=== PATIENT | female | born 1985 | race Two or more races ===

== ENCOUNTER 2025-02-26 14:10 | Inpatient (IN) | payer OTHER ==
[~2025-02-26] VITALS: Ht 157.5 cm; Wt 54.0 kg
--- NOTE | 2025-02-26 14:19 | ED.PDOC ---
History of Present Illness HPI Comments This is a 40 year old female OSCARA presenting to the ED with chief complaint of ETOH withdrawal and depression. EMS reports that the patient is coming from her friend's home where she has been experiencing nausea with associated tremors and weakness today. EMS relays that the patient's last drink of alcohol was 6 hours ago. Patient admits to having depression after delivering her child 4 months ago, but didn't start binge drinking until her birthday on [birth year]. Patient states that her baby is currently where she lives in [facility]. Patient denies any SI, HI, vomiting, chest pain, abdominal pain, or syncope. Patient is . Time Seen by MD: 14:15 Reviewed Notes: Nurses Notes, Pediatric Speech Language Pathologist Notes, Medications, Allergies Information Source: Patient, Emergency Med Personnel Mode of Arrival: EMS Severity: Moderate Timing: Hours Duration: Since onset Prehospital treatment: None Past Medical History PAST MEDICAL HISTORY: Denies Surgical History: Denies all surgeries MANAGER OF CREATIVE SERVICES History: No Pertinent MANAGER OF CREATIVE SERVICES History Family History Family History: Reviewed,noncontributory to illness Social History Smoker: Non-Smoker Alcohol: Heavy Drugs: Denies Drug Use Lives In: Home Constitutional: reports: weakness; denies: chills, diaphoresis, fatigue, fever, malaise, sweats, others EENTM: denies: blurred vision, double vision, ear bleeding, ear discharge, ear drainage, ear pain, ear ringing, eye pain, eye redness, hearing loss, mouth pain, mouth swelling, nasal discharge, nose bleeding, nose congestion, nose pain, photophobia, tearing, throat pain, throat swelling, voice changes, others Respiratory: denies: cough, hemoptysis, orthopnea, SOB at rest, shortness of breath, SOB with excertion, stridor, wheezing, others Cardiovascular: denies: chest pain, dizzy spells, diaphoresis, Dyspnea on exertion, edema, irregular heart beat, left arm pain, lightheadedness, pal pitations, PND, syncope, others Gastrointestinal: reports: nausea; denies: abdomen distended, abdominal pain, blood streaked bowels, constipated, diarrhea, dysphagia, difficulty swallowing, hematemesis, melena, poor appetite, poor fluid intake, rectal bleeding, rectal pain, vomiting, others Genitourinary: denies: abnormal vagina bleeding, burning, dyspareunia, dysuria, flank pain, frequency, hematuria, incontinence, pain, , vagina disc harge, urgency, others Neurological: reports: tremors; denies: dizziness, fainting, headache, left sided numbness, left sided weakness, numbness, paresthesia, pre-existing deficit, right sided numbness, right sided weakness, seizure, speech problems, tingling, weakness, others Musculoskeletal: denies: back pain, gout, joint pain, joint swelling, muscle pain, muscle stiffness, neck pain, others Integumetry: denies: bruises, change in color, change in hair/nails, dryness, laceration, lesions, lumps, rash, wounds, others Allergic/Immunocompromised: denies: Difficulty Healing, Frequent Infections, Hives, Itching, others Hematologic/Lymphatic: denies: anemia, blood clots, easy bleeding, easy bruising, swollen glands, others Endocrine: denies: excessive hunger, excessive sweating, excessive thirst, excessive urination, flushing, intolerance to cold, intolerance to heat, unexplained weight gain, unexplained weight loss, others Psychiatric: reports: depression; denies: anxiety, bipolar disorder, hopeless, panic disorder, schizophrenia, sleepless, suicidal, others All Other Systems: Reviewed and Negative Physical Exam General Appearance: Moderate Distress, Normal HEENT: Normal ENT Inspection, Pharynx Normal, TMs Normal Neck: Full Range of Motion, Non-Tender, Normal, Normal Inspection Respiratory: Chest Non-Tender, Lungs Clear, No Accessory Muscle Use, No Respiratory Distress, Normal Breath Sounds Cardiovascular: No Edema, No JVD, No Murmur, No Gallop, Normal Peripheral Pulses, Regular Rate/Rhythm Breast Exam: Deferred Gastrointestinal: No Organomegaly, Non Tender, No Pulsatile Mass, Normal Bowel Sounds, Soft Genitalia: Deferred Pelvic: Deferred Rectal: Deferred Extremities: No calf tenderness, Normal capillary refill, Normal inspection, Normal range of motion, Non-tender, No pedal edema Musculoskeletal : Apperance: Normal Neurologic: Alert, manager terminal II-XII nml as Tested, No Motor Deficits, Normal Affect, Normal Mood, No Sensory Deficits Cerebellar Function: Normal Reflexes: Normal Skin: Dry, Normal Color, Warm Peripheral Pulses: 3+ Radial (R), 3+ Radial (L) Lymphatic: No Adenopathy Was a procedure done? Was a procedure done?: No Differential Dx Considerations may include: ETOH intoxication X-Ray, Labs, Meds, VS Lab Test 02/26/25 14:22 Range/Units White Blood Count Pending Red Blood Count Pending Hemoglobin Pending Hematocrit Pending Mean Corpuscular Volume Pending Mean Corpuscular Hemoglobin Pending Mean Corpuscular Hemoglobin Concent Pending Red Cell Distribution Width Pending Platelet Count Pending Mean Platelet Volume Pending Neutrophils (%) (Auto) Pending Lymphocytes (%) (Auto) Pending Monocytes (%) (Auto) Pending Basophils (%) (Auto) Pending Neutrophils # (Auto) Pending Lymphocytes # (Auto) Pending Monocytes # (Auto) Pending Sodium Level Pending Potassium Level Pending Chloride Level Pending Carbon Dioxide Level Pending Anion Gap Pending Blood Urea Nitrogen Pending Creatinine Pending Glomerular Filtration Rate Calc Pending BUN/Creatinine Ratio Pending Serum Glucose Pending Calcium Level Pending Patient alert. She has been drinking for many days. Vitals stable. Answering questions. Recently had given . History of alcohol problem. Establish intravenous access. Was given fluids. Was given thiamine. Counseled patient on effects of drinking for 15 minutes. Explained to the patient. Continue monitoring. Time of 1ST Reevaluation: 15:13 Reevaluation 1ST: Unchanged Patient Education/Counseling: Diagnosis, Treatment Family Education/Counseling: No Family Present SEPSIS Sepsis Screen Physician Orders Complete Blood Count (02/26/25 14:13) Urinalysis (02/26/25 14:13) Basic Metabolic Panel (02/26/25 14:13) Sodium Chloride 0.9% (02/26/25 14:15) Sodium Chloride 0.9% (02/26/25 14:15) Laboratory Tests Test 02/26/25 14:22 White Blood Count Pending Departure 1 Departure Time of Disposition: 14:30 Impression: Primary Impression: Alcohol intoxication Qualified Codes: F10.920 - Alcohol use, unspecified with intoxication, uncomplicated Disposition: 09 ADMITTED INPATIENT Admit to: Med Surg Condition: Guarded Critical Care Note Critical Care Time?: No Stability Stability form required: No Heart Score Heart Score: Heart Score Response (Comments) Value History N/A 0 EKG N/A 0 Age N/A 0 Risk Factors N/A 0 Troponin N/A 0 Total 0 I personally scribed for FELTON MAO MD ([email or web address]) on 02/26/25 at 14:19. Electronically submitted by Dionisio Moya ([email or web address]). FELTON MAO MD Feb 26, 2025 14:19
[2025-02-26 14:31] LABS: Hematocrit 46.2 % (36.0-46.0); Hemoglobin 15.8 g/dL (12.2-16.2); Mean Corpuscular Hemoglobin 30.8 pg (28.0-32.0); Mean Corpuscular Volume 89.8 fL (80.0-100.0); Nucleated Red Blood Cells % 0.1 %
[2025-02-26] MEDS: THIAMINE 100mg/ml INJ (200mg/2ml VIAL) IV ONE (14:38)
[2025-02-26 14:41] LABS: Anion Gap 15 (5-15); Carbon Dioxide 25 mmol/L (20-31); Chloride 102 mmol/L (98-107); Potassium 4.2 mmol/L (3.5-5.1); Sodium 142 mmol/L (136-145)
[2025-02-26 14:42] LABS: Calcium 8.8 mg/dL (8.7-10.4)
[2025-02-26] MEDS: SODIUM CHLORIDE 0.9% 1,000 ML IV ONE ×2 (14:45→16:40)
[2025-02-26 14:47] LABS: BUN/Creatinine Ratio 11.8 (10.0-20.0)
[2025-02-26 14:48] LABS: Blood Urea Nitrogen 8 mg/dL (9-23); Glucose 116 mg/dL (74-106)
[2025-02-26] MEDS: LORazepam 2MG/ML-1ML VIAL IV ONE (15:05)
[2025-02-26 15:36] VITALS: PULSE 102; RESP 19; O2SAT 93
[2025-02-26] MEDS ORDERED: DOCUSATE SOD 100 MG CAP PO PRN (18:30)
--- NOTE | 2025-02-26 18:33 | DVHHP2 ---
Admitting Diagnosis: Alcohol intoxication History of Present Illness This is a 40 year old female OSCARA presenting to the ED with chief complaint of ETOH withdrawal and depression. EMS reports that the patient is coming from her friend's home where she has been experiencing nausea with associated tremors and weakness today. EMS relays that the patient's last drink of alcohol was 6 hours ago. Patient admits to having depression after delivering her child 4 months ago , but didn't start binge drinking until her birthday on [birth year]. Patient states that her baby is currently where she lives in [facility]. Patient denies any SI, HI, vomiting, chest pain, abdominal pain, or syncope. Patient is . PAST MEDICAL HISTORY: Denies Surgical History: Denies all surgeries COST ENGINEER History: No Pertinent COST ENGINEER History Family History Family History: Reviewed,noncontributory to illness Social History Smoker: Non-Smoker Alcohol: Heavy Drugs: Denies Drug Use Lives In: Home Allergies: Coded Allergies: NO KNOWN ALLERGIES (Unverified , 02/26/25) Vital Signs Vital Signs Date Time Temp Pulse Resp B/P (MAP) Pulse Ox O2 Delivery O2 Flow Rate FiO2 02/26/25 15:41 102 19 132/91 (105) 93 02/26/25 15:36 Room Air* 0 21 02/26/25 14:10 98.9 98.9 Physical Exam Generally-40 years old woman, well nourished well developed. Mild distress HEENT-atraumatic normocephalic Heart-sinus tachycardic Lungs-Clear to auscultate bilaterally Abdomen soft nontender nondistended Musculoskeletal-no edema cyanosis Neuro-AO3 no focal deficits SEPSIS Sepsis Screen Date sepsis recognized/suspect: Feb 26, 2025 Time Sepsis recognized/suspect: 1542 Recent Procedure: No On Antibiotic Therapy: No Respiratory Rate >20: No Heart Rate >90: Yes (102) Temp<36 C (96.8 F) or >38.3 C: No SBP <90 or MAP <65 mmHG: No New Acute Mental Status Change: No Is the patient on CPAP, BIPAP,: No Physician Orders Urinalysis (02/26/25 14:13) Sodium Chloride 0.9% (02/26/25 14:15) Drug Screen (02/26/25 14:30) Lactated Ringer's (02/26/25 18:30) Admit (02/26/25:) Code Status (02/26/25:) Vital Signs .PER UNIT PROTOCOL (02/26/25:25) Review Orders With Adm. (02/26/25 18:25) Encourage Activity As Tolerate (02/26/25 18:25) Regular Diet (02/26/25 Dinner) Sodium Chloride Lock (Saline Lock Ns) (02/26/25 22:00) Docusate Sodium Capsule (Colace Capsule) (02/26/25 18:30) Acetaminophen Tablet (Tylenol Tablet) (02/26/25 18:30) Notify Md Of Changes From Base (02/26/25:) Advance Directive (02/26/25:) Patient Condition (02/26/25:) Allergies (02/26/25:) Hydrocodone-Acet 5/325mg Tab ([place] 5/32 (02/26/25 18:30) Ondansetron Hcl (Zofran) (02/26/25 18:30) Lovenox 40mg (02/27/25 10:00) Thiamine 100mg Po Daily (02/27/25 10:00) Folic Acid 1mg Po Daily (02/27/25 10:00) Mvi Tablet Po Daily (02/27/25 10:00) Ativan 1mg Iv Q2hr Prn (02/26/25 18:30) Etoh Withdrawal Assessment (02/26/25 18:28) Etoh Withdrawal Assessment NOW (02/26/25 18:28) Vital Signs Date Time Temp Pulse Resp B/P (MAP) Pulse Ox O2 Delivery O2 Flow Rate FiO2 02/26/25 15:41 102 19 132/91 (105) 93 02/26/25 15:36 102 19 93 Room Air* 0 21 02/26/25 14:10 98.9 111 16 127/87 (100) 99 98.9 Laboratory Tests Test 02/26/25 14:22 White Blood Count 7.4 10^3/uL (4.4-10.8) Medications Medications Dose Ordered Sig/Clara Route Start Time Stop Time Status Last Admin Dose Admin Lorazepam 1 mg ONCE ONCE IV 02/26/25 14:30 02/26/25 14:31 DC 02/26/25 15:05 Sodium Chloride 1,000 ml @ 150 mls/hr Q6H40M ONCE IV 02/26/25 14:15 02/26/25 20:54 02/26/25 16:40 Sodium Chloride 1,000 ml @ 1,000 mls/hr Q1H ONCE IV 02/26/25 14:15 02/26/25 15:14 DC 02/26/25 14:45 Thiamine HCl 100 mg ONCE ONCE IV 02/26/25 14:15 02/26/25 14:16 DC 02/26/25 14:38 Results Labs Test 02/26/25 14:22 Range/Units White Blood Count 7.4 4.4-10.8 10^3/uL Red Blood Count 5.14 4.0-5.20 10^6/uL Hemoglobin 15.8 12.2-16.2 g/dL Hematocrit 46.2 H 36.0-46.0 % Mean Corpuscular Volume 89.8 80.0-100.0 fL Mean Corpuscular Hemoglobin 30.8 28.0-32.0 pg Mean Corpuscular Hemoglobin Concent 34.3 32.0-36.0 g/dL Red Cell Distribution Width 13.5 11.8-14.3 % Platelet Count 196 140-450 10^3/uL Mean Platelet Volume 7.5 6.9-10.8 fL Neutrophils (%) (Auto) 61.0 37.0-80.0 % Lymphocytes (%) (Auto) 34.6 10.0-50.0 % Monocytes (%) (Auto) 3.6 0.0-12.0 % Eosinophils (%) (Auto) 0.1 0.0-7.0 % Basophils (%) (Auto) 0.7 0.0-2.0 % Neutrophils # (Auto) 4.5 1.6-8.6 10 ^3/uL Lymphocytes # (Auto) 2.6 0.4-5.4 10 ^3/uL Monocytes # (Auto) 0.3 0-1.3 10 ^3/uL Eosinophils # (Auto) 0 0-0.8 10 ^3/uL Basophils # (Auto) 0.1 0-0.2 10 ^3/uL Nucleated Red Blood Cells 0.1 % Sodium Level 142 136-145 mmol/L Potassium Level 4.2 3.5-5.1 mmol/L Chloride Level 102 98-107 mmol/L Carbon Dioxide Level 25 20-31 mmol/L Anion Gap 15 5-15 Blood Urea Nitrogen 8 L 9-23 mg/dL Creatinine 0.68 0.550-1.02 mg/dL Glomerular Filtration Rate Calc 114 >90 mL/min BUN/Creatinine Ratio 11.8 10.0-20.0 Serum Glucose 116 H 74-106 mg/dL Calcium Level 8.8 8.7-10.4 mg/dL Plasma/Serum Blood Alcohol 351.5 H <10 mg/dL Primary Diagnosis Alcoholic intoxication impending withdrawal Plan ETOH level elevated Start IV fluids at 150 cc an hour Thiamine, folate Social work consult Daily CIWA score Ativan p.r.n. per symptoms Full code Regular diet Lovenox for DVT prophylaxis PPI for GI prophylaxis Plan discussed with: Patient Problems List: (1) Alcohol intoxication Status: Acute Date of Service: Feb 26, 2025 Billing Provider: CANDELARIO EMERY MD Common Visit Codes: [id number] INP/OBS CARE (MOD) CANDELARIO EMERY MD Feb 26, 2025 18:33
[2025-02-26 19:47] VITALS: PULSE 106; RESP 18; O2SAT 97
[2025-02-26] MEDS: LORazepam 2MG/ML-1ML VIAL IV PRN (20:07)
[2025-02-26 22:30] VITALS: BP 111/77; PULSE 59; RESP 16; TEMP 97.9; O2SAT 98
[2025-02-26] MEDS: LACTATED RINGER'S 1,000 ML IV ONE (22:37)
[2025-02-26] MEDS: SODIUM CHLOR 0.9% PF (SALINE LOCK) 10ML VIAL/SYR IV SCH (22:37)
[2025-02-26 22:40] VITALS: BP 111/77; PULSE 88; PULSE 89; RESP 16; RESP 17; TEMP 97.9; O2SAT 98
[2025-02-26 23:33] LABS: Urine Protein, UAD 1+ (Negative)
[2025-02-27 00:04] LABS: Amphetamine Screen, Urine Neg (NEGATIVE); Barbiturate Scree,Urine Neg (NEGATIVE); Benzodiazephine Screen, Urine Neg (NEGATIVE); Cannabinoid Screen, Urine Neg (NEGATIVE); Cocaine Screen, Urine Neg (NEGATIVE); Opiate Scree,Urine Neg (NEGATIVE); Phencyclidine Screen, Urine Neg (NEGATIVE)
[2025-02-27 01:00] VITALS: BP 114/83; PULSE 101; RESP 16; TEMP 97.6; O2SAT 100
[2025-02-27 05:00] VITALS: BP 127/83; PULSE 98; RESP 18; TEMP 98.3; O2SAT 75
[2025-02-27 06:23] LABS: Hematocrit 36.9 % (36.0-46.0); Hemoglobin 12.6 g/dL (12.2-16.2); Mean Corpuscular Hemoglobin 30.4 pg (28.0-32.0); Mean Corpuscular Volume 89.3 fL (80.0-100.0); Nucleated Red Blood Cells % 0.1 %
[2025-02-27 06:42] LABS: Alanine Aminotransferase 24 U/L (7-40); Alkaline Phosphatase 76 U/L (46-116); Anion Gap 11 (5-15); BUN/Creatinine Ratio 14.5 (10.0-20.0); Carbon Dioxide 25 mmol/L (20-31); Chloride 104 mmol/L (98-107); Glucose 78 mg/dL (74-106); Magnesium 1.7 mg/dL (1.6-2.6); Potassium 3.8 mmol/L (3.5-5.1); Sodium 140 mmol/L (136-145); Total Protein 6.2 g/dL (5.7-8.2)
[2025-02-27 06:43] LABS: Albumin 3.8 g/dL (3.2-4.8); Bilirubin, Total 1.1 mg/dL (0.2-1.0)
[2025-02-27 06:46] LABS: Blood Urea Nitrogen 8 mg/dL (9-23); Calcium 8.3 mg/dL (8.7-10.4)
[2025-02-27 08:43] VITALS: BP 128/86; PULSE 87; RESP 18; TEMP 98.2; O2SAT 100
[2025-02-27] MEDS: FOLIC ACID 1 MG TAB PO SCH (08:45)
[2025-02-27] MEDS: MULTIPLE VITAMIN TAB PO SCH (08:45)
[2025-02-27] MEDS: THIAMINE HCL 100 MG TAB PO SCH (08:45)
[2025-02-27] MEDS: ENOXAPARIN SOD 40 MG/0.4 ML SYRINGE SC SCH (08:46)
[2025-02-27 13:00] VITALS: BP 136/101; PULSE 84; RESP 17; TEMP 98.2; O2SAT 100
[2025-02-27] MEDS: ONDANSETRON HCL 4 MG/2 ML VIAL IV PRN (14:22)
[2025-02-27 17:00] VITALS: BP 130/90; PULSE 77; RESP 16; TEMP 97.3; O2SAT 99
[2025-02-27 21:00] VITALS: BP 122/86; PULSE 74; RESP 14; TEMP 97.7; O2SAT 99
[2025-02-27] MEDS: ACETAMINOPHEN 325 MG TAB PO PRN (22:13)
--- NOTE | 2025-02-27 23:45 | DVHPN2 ---
Subjective The patient seen and examined at bedside. Very drowsy and confuse. Reviewed: Care Plan, H&P, Labs, Medications, Previous Orders, Radiology Changes from previous H/P or p: No Changes Objective Vitals Vital Signs Date Time Temp Pulse Resp B/P (MAP) Pulse Ox O2 Delivery O2 Flow Rate FiO2 02/27/25 21:00 97.7 74 14 122/86 (98) 99 97.7 02/27/25 08:00 Nasal Cannula* 1 24 Intake/Output Intake and Output 02/27/25 07:00 Intake Total 200 ml Balance 200 ml Intake Oral 200 ml General Appearance: Alert HEENT: Atraumatic, PERRLA, EOMI, Mucous membr. moist/pink Neck: Supple Lungs: Clear to auscultation Cardiovascular: Regular rate, Normal S1, Normal S2, No murmurs, Gallops, Rubs Abdomen: Normal bowel sounds, Soft, No tenderness Neuro: Cranial nerves 3-12 NL Psych/Mental Status: Mental status NL Medications Current Medications Medications Dose Ordered Sig/Clara Route Start Time Stop Time Status Last Admin Dose Admin Sodium Chloride 10 ml Q8HR IV 02/26/25 22:00 02/27/25 22:13 10 ML Docusate Sodium 100 mg BIDPRN PRN PO 02/26/25 18:30 Acetaminophen 650 mg Q6HP PRN PO 02/26/25 18:30 02/27/25 22:13 650 MG Acetaminophen/ Hydrocodone Bitart 1 tab Q4HP PRN PO 02/26/25 18:30 Ondansetron HCl 4 mg Q4HP PRN IV 02/26/25 18:30 02/27/25 14:22 4 MG Enoxaparin Sodium 40 mg DAILY SC 02/27/25 10:00 02/27/25 08:46 40 MG Thiamine HCl 100 mg DAILY PO 02/27/25 10:00 02/27/25 08:45 100 MG Folic Acid 1 mg DAILY PO 02/27/25 10:00 02/27/25 08:45 1 MG Multivitamins 1 tab DAILY PO 02/27/25 10:00 02/27/25 08:45 1 TAB Lorazepam 1 mg Q2HPRN PRN IV 02/26/25 18:30 02/27/25 14:22 1 MG Laboratory Results Laboratory Tests 02/27/25 05:24 Chemistry Test 02/27/25 05:24 Albumin 3.8 g/dL (3.2-4.8) Calcium Level 8.3 mg/dL (8.7-10.4) L Magnesium Level 1.7 mg/dL (1.6-2.6) Total Protein 6.2 g/dL (5.7-8.2) LFT Test 02/27/25 05:24 Alanine Aminotransferase (ALT) 24 U/L (7-40) Alkaline Phosphatase 76 U/L (46-116) Aspartate Amino Transferase (AST) 33 U/L (13-40) Total Bilirubin 1.1 mg/dL (0.2-1.0) H Urinalysis Test 02/26/25 23:21 Urine Color Light-yellow (Yellow) Urine Clarity Turbid (Clear) H Urine pH 5.5 (5.0-9.0) Urine Specific [place] 1.015 (1.001-1.035) Urine Protein 1+ (Negative) H Urine Ketones Trace (Negative) Urine Blood Negative /uL (Negative) Urine Nitrite Negative (Negative) Urine Bilirubin Negative (Negative) Urine Urobilinogen Normal mg/dL (Negative) Urine Leukocyte Esterase Negative /uL (Negative) Urine RBC <1 /hpf (0 - 4) Urine Microscopic WBC 10 /HPF (0-5) H Urine Squamous Epithelial Cells Few /hpf (<5) Urine Bacteria None seen /hpf (None Seen) Urine Mucus Few (None Seen) Urine Glucose Normal mg/dL (Normal) Assessment/Plan Assessment/Plan Alcoholic intoxication impending withdrawal Toxic encephalopathy. Plan: Continue current management. Continue IVF: NS 150ml/h Continue Librium and Ativan Will continue to monitor withdrawal. This medical document was created using an electronic medical record system with [employer] direct computerized dictation system. Although this document has been carefully reviewed, there may still be some phonetic and typographical errors. These areas are purely typographical due to imperfections of the software programs, and do not reflect any compromise in the patient's medical care. Plan discussed with: Patient Date of Service: Feb 27, 2025 Billing Provider: OLIVIA THOMPSON MD Common Visit Codes: [id number] INP/OBS CARE(HIGH) OLIVIA THOMPSON MD Feb 27, 2025 23:45
[2025-02-28 01:00] VITALS: BP 118/86; PULSE 83; RESP 14; TEMP 97.6; O2SAT 99
[2025-02-28 05:00] VITALS: BP 126/93; PULSE 72; RESP 14; TEMP 97.9; O2SAT 99
[2025-02-28 07:21] LABS: Hematocrit 42.6 % (36.0-46.0); Hemoglobin 14.8 g/dL (12.2-16.2); Mean Corpuscular Hemoglobin 31.2 pg (28.0-32.0); Mean Corpuscular Volume 89.7 fL (80.0-100.0); Nucleated Red Blood Cells % 0.2 %
[2025-02-28 07:30] LABS: Alanine Aminotransferase 27 U/L (7-40); Alkaline Phosphatase 94 U/L (46-116); Anion Gap 18 (5-15); Calcium 9.3 mg/dL (8.7-10.4); Chloride 99 mmol/L (98-107); Magnesium 1.8 mg/dL (1.6-2.6); Potassium 4.2 mmol/L (3.5-5.1); Total Protein 7.5 g/dL (5.7-8.2)
[2025-02-28 07:31] LABS: Albumin 4.6 g/dL (3.2-4.8)
[2025-02-28 07:32] LABS: BUN/Creatinine Ratio 8.6 (10.0-20.0); Bilirubin, Total 1.2 mg/dL (0.2-1.0); Blood Urea Nitrogen < 5 mg/dL (9-23); Carbon Dioxide 16 mmol/L (20-31); Glucose 61 mg/dL (74-106); Sodium 133 mmol/L (136-145)
[2025-02-28 08:59] VITALS: BP 122/91; PULSE 96; RESP 18; TEMP 98.4; O2SAT 99
--- NOTE | 2025-02-28 11:34 | DVHPN2 ---
Subjective The patient seen and examined at bedside. Very drowsy and confuse. Reviewed: Care Plan, H&P, Labs, Medications, Previous Orders, Radiology Changes from previous H/P or p: No Changes Objective Vitals Vital Signs Date Time Temp Pulse Resp B/P (MAP) Pulse Ox O2 Delivery O2 Flow Rate FiO2 02/28/25 08:59 98.4 96 18 122/91 (101) 99 98.4 02/28/25 08:00 Nasal Cannula* 1 24 Intake/Output Intake and Output 02/28/25 07:00 Intake Total 400 ml Balance 400 ml Intake Oral 400 ml # Voids 2 General Appearance: Alert HEENT: Atraumatic, PERRLA, EOMI, Mucous membr. moist/pink Neck: Supple Lungs: Clear to auscultation Cardiovascular: Regular rate, Normal S1, Normal S2, No murmurs, Gallops, Rubs Abdomen: Normal bowel sounds, Soft, No tenderness Neuro: Cranial nerves 3-12 NL Psych/Mental Status: Mental status NL Medications Current Medications Medications Dose Ordered Sig/Clara Route Start Time Stop Time Status Last Admin Dose Admin Sodium Chloride 10 ml Q8HR IV 02/26/25 22:00 02/28/25 05:49 10 ML Docusate Sodium 100 mg BIDPRN PRN PO 02/26/25 18:30 Acetaminophen 650 mg Q6HP PRN PO 02/26/25 18:30 02/28/25 04:22 650 MG Acetaminophen/ Hydrocodone Bitart 1 tab Q4HP PRN PO 02/26/25 18:30 Ondansetron HCl 4 mg Q4HP PRN IV 02/26/25 18:30 02/28/25 08:31 4 MG Enoxaparin Sodium 40 mg DAILY SC 02/27/25 10:00 02/28/25 08:31 40 MG Thiamine HCl 100 mg DAILY PO 02/27/25 10:00 02/28/25 08:30 100 MG Folic Acid 1 mg DAILY PO 02/27/25 10:00 02/28/25 08:30 1 MG Multivitamins 1 tab DAILY PO 02/27/25 10:00 02/28/25 08:30 1 TAB Lorazepam 1 mg Q2HPRN PRN IV 02/26/25 18:30 02/28/25 11:15 1 MG Laboratory Results Laboratory Tests 02/28/25 06:15 Chemistry Test 02/28/25 06:15 Albumin 4.6 g/dL (3.2-4.8) Calcium Level 9.3 mg/dL (8.7-10.4) Magnesium Level 1.8 mg/dL (1.6-2.6) Total Protein 7.5 g/dL (5.7-8.2) LFT Test 02/28/25 06:15 Alanine Aminotransferase (ALT) 27 U/L (7-40) Alkaline Phosphatase 94 U/L (46-116) Aspartate Amino Transferase (AST) 41 U/L (13-40) H Total Bilirubin 1.2 mg/dL (0.2-1.0) H Urinalysis Test 02/26/25 23:21 Urine Color Light-yellow (Yellow) Urine Clarity Turbid (Clear) H Urine pH 5.5 (5.0-9.0) Urine Specific [place] 1.015 (1.001-1.035) Urine Protein 1+ (Negative) H Urine Ketones Trace (Negative) Urine Blood Negative /uL (Negative) Urine Nitrite Negative (Negative) Urine Bilirubin Negative (Negative) Urine Urobilinogen Normal mg/dL (Negative) Urine Leukocyte Esterase Negative /uL (Negative) Urine RBC <1 /hpf (0 - 4) Urine Microscopic WBC 10 /HPF (0-5) H Urine Squamous Epithelial Cells Few /hpf (<5) Urine Bacteria None seen /hpf (None Seen) Urine Mucus Few (None Seen) Urine Glucose Normal mg/dL (Normal) Labs and/or images reviewed: Labs reviewed by me Assessment/Plan Assessment/Plan Alcoholic intoxication impending withdrawal Toxic encephalopathy. Plan: Continue current management. Continue IVF: Will start B[place]ana bag which including Vit B1, folic acid and MVI at 125ml/hour Continue Librium and Ativan Will continue to monitor withdrawal. This medical document was created using an electronic medical record system with [employer] direct computerized dictation system. Although this document has been carefully reviewed, there may still be some phonetic and typographical errors. These areas are purely typographical due to imperfections of the software programs, and do not reflect any compromise in the patient's medical care. Plan discussed with: Patient, Other (RN) Date of Service: Feb 28, 2025 Billing Provider: OLIVIA THOMPSON MD Common Visit Codes: [id number] INP/OBS CARE(HIGH) THOMPSON,OLIVIA O MD Feb 28, 2025 11:34
[2025-02-28 13:00] VITALS: BP 140/108; PULSE 116; RESP 20; TEMP 98.1; O2SAT 98
[2025-02-28] MEDS: HYDROcodone-ACET 5/325MG TAB PO PRN (13:57)
[2025-02-28 16:51] VITALS: BP 118/83; PULSE 103; RESP 20; TEMP 98.4; O2SAT 99
[2025-02-28] MEDS: FOLIC ACID 1 MG, MAGNESIUM SULF SDV 50% 8 MEQ, MULTIPLE VITAMIN 10 ML, THIAMINE INJ 100... INJ ONE (17:54)
[2025-02-28 21:00] VITALS: BP 119/92; PULSE 96; RESP 22; TEMP 98.1; O2SAT 100
[2025-03-01 05:00] VITALS: BP 119/86; PULSE 86; RESP 20; TEMP 98; O2SAT 100
[2025-03-01 06:54] LABS: Hematocrit 39.4 % (36.0-46.0); Hemoglobin 13.9 g/dL (12.2-16.2); Mean Corpuscular Hemoglobin 31.5 pg (28.0-32.0); Mean Corpuscular Volume 89.1 fL (80.0-100.0); Nucleated Red Blood Cells % 0.1 %
[2025-03-01 06:55] LABS: Alanine Aminotransferase 21 U/L (7-40); Alkaline Phosphatase 79 U/L (46-116); Anion Gap 13 (5-15); Calcium 9.0 mg/dL (8.7-10.4); Chloride 104 mmol/L (98-107); Glucose 91 mg/dL (74-106); Magnesium 2.0 mg/dL (1.6-2.6); Potassium 3.9 mmol/L (3.5-5.1); Sodium 136 mmol/L (136-145); Total Protein 7.0 g/dL (5.7-8.2)
[2025-03-01 06:56] LABS: Albumin 4.2 g/dL (3.2-4.8); Bilirubin, Total 0.9 mg/dL (0.2-1.0)
[2025-03-01 07:02] LABS: BUN/Creatinine Ratio 8.8 (10.0-20.0); Blood Urea Nitrogen < 5 mg/dL (9-23); Carbon Dioxide 19 mmol/L (20-31)
[2025-03-01 08:00] VITALS: PULSE 82; RESP 17
--- NOTE | 2025-03-01 12:40 | DVHDS2 ---
Discharge Summary Date of Admission Feb 26, 2025 at 18:25 Date of Discharge: Mar 01, 2025 Admitting Diagnosis Alcoholic intoxication impending withdrawal Toxic encephalopathy. Labs/Diagnostic Data: Laboratory Results Test 03/01/25 06:08 02/26/25 23:21 02/26/25 14:22 White Blood Count 3.7 10^3/uL (4.4-10.8) Red Blood Count 4.42 10^6/uL (4.0-5.20) Hemoglobin 13.9 g/dL (12.2-16.2) Hematocrit 39.4 % (36.0-46.0) Mean Corpuscular Volume 89.1 fL (80.0-100.0) Mean Corpuscular Hemoglobin 31.5 pg (28.0-32.0) Mean Corpuscular Hemoglobin Concent 35.4 g/dL (32.0-36.0) Red Cell Distribution Width 12.7 % (11.8-14.3) Platelet Count 88 10^3/uL (140-450) Mean Platelet Volume 8.2 fL (6.9-10.8) Neutrophils (%) (Auto) 66.9 % (37.0-80.0) Lymphocytes (%) (Auto) 24.3 % (10.0-50.0) Monocytes (%) (Auto) 5.3 % (0.0-12.0) Eosinophils (%) (Auto) 3.3 % (0.0-7.0) Basophils (%) (Auto) 0.2 % (0.0-2.0) Neutrophils # (Auto) 2.5 10 ^3/uL (1.6-8.6) Lymphocytes # (Auto) 0.9 10 ^3/uL (0.4-5.4) Monocytes # (Auto) 0.2 10 ^3/uL (0-1.3) Eosinophils # (Auto) 0.1 10 ^3/uL (0-0.8) Basophils # (Auto) 0 10 ^3/uL (0-0.2) Nucleated Red Blood Cells 0.1 % Sodium Level 136 mmol/L (136-145) Potassium Level 3.9 mmol/L (3.5-5.1) Chloride Level 104 mmol/L (98-107) Carbon Dioxide Level 19 mmol/L (20-31) Anion Gap 13 (5-15) Blood Urea Nitrogen < 5 mg/dL (9-23) Creatinine 0.57 mg/dL (0.550-1.02) Glomerular Filtration Rate Calc 119 mL/min (>90) BUN/Creatinine Ratio 8.8 (10.0-20.0) Serum Glucose 91 mg/dL (74-106) Calcium Level 9.0 mg/dL (8.7-10.4) Magnesium Level 2.0 mg/dL (1.6-2.6) Total Bilirubin 0.9 mg/dL (0.2-1.0) Aspartate Amino Transferase (AST) 34 U/L (13-40) Alanine Aminotransferase (ALT) 21 U/L (7-40) Alkaline Phosphatase 79 U/L (46-116) Total Protein 7.0 g/dL (5.7-8.2) Albumin 4.2 g/dL (3.2-4.8) Urine Color Light-yellow (Yellow) Urine Clarity Turbid (Clear) Urine pH 5.5 (5.0-9.0) Urine Specific [place] 1.015 (1.001-1.035) Urine Protein 1+ (Negative) Urine Ketones Trace (Negative) Urine Blood Negative /uL (Negative) Urine Nitrite Negative (Negative) Urine Bilirubin Negative (Negative) Urine Urobilinogen Normal mg/dL (Negative) Urine Leukocyte Esterase Negative /uL (Negative) Urine RBC <1 /hpf (0 - 4) Urine Microscopic WBC 10 /HPF (0-5) Urine Squamous Epithelial Cells Few /hpf (<5) Urine Bacteria None seen /hpf (None Seen) Urine Mucus Few (None Seen) Urine Glucose Normal mg/dL (Normal) Urine Opiates Screen Neg (NEGATIVE) Urine Fentanyl Screen Neg (NEGATIVE) Urine Barbiturates Screen Neg (NEGATIVE) Urine Phencyclidine Screen Neg (NEGATIVE) Urine Amphetamines Screen Neg (NEGATIVE) Urine Benzodiazepines Screen Neg (NEGATIVE) Urine Cocaine Screen Neg (NEGATIVE) Urine Cannabinoids Screen Neg (NEGATIVE) Plasma/Serum Blood Alcohol 351.5 mg/dL (<10) Other Laboratory Tests 03/01/25 06:08 Brief Hx & Hospital Course: This is a 40 years old female came to emergency department with chief complaint of alcohol withdrawal and depression. The patient apparently come from her friend house where she had been experiencing nausea, vomiting, associated with tremors and weakness. EMS relates that the patient's last drink of alcohol was 6 hours prior to coming to emergency department. Patient is having depression after delivery child four months ago. She said she had therapy for depression at [facility] . She denied any thought of harming herself or other people. She denied any suicidal ideation. She said she did not drink alcohol for long time however started binge drinking on her birthday 02/15/2023 and continuing to drink. Per patient her baby is currently reside at [facility], with her family. The patient was admitted. The patient was given banana bag which including folic acid, multivitamin, vitamin B1 in normal saline at 125 mL/hr. The patient was detox with Ativan and Librium. Today the patient is alert oriented x3. The patient had no tremor. Patient tolerated diet. No nausea or vomiting. The patient wished to go back to [facility] with her child. electronic instrument trades worker was consulted regarding to transportation to her friend's house in [place] then she will try to get back to [facility]. Physical exam: HEENT: Normocephalic atraumatic pupils equal react to light and accommodation. Extraocular muscles intact, conjunctiva pink, oropharynx moist, no thrush, no exudate. Lymphatic: No lymphadenopathy Cardiovascular exam: S1, S2 was heard. No murmurs, rubs, gallops Lung: Clear on auscultation bilaterally, no wheeze, rale, rhonchi. GI: Abdominal soft, nondistended, nontenderness, positive bowel sounds. Extremity: No crepitus, cyanosis, edema. Pedal pulses present bilateral. Full range of motion. Skin: Normal turgor, no rash. Psych: Alert, oriented x3. Neurology: No focal deficits, cranial nerve II to XII grossly intact. This medical document was created using an electronic medical record system with [employer] direct computerized dictation system. Although this document has been carefully reviewed, there may still be some phonetic and typographical errors. These areas are purely typographical due to imperfections of the software programs, and do not reflect any compromise in the patient's medical care. Condition at Discharge: Stable Final Diagnosis/Problems List Alcoholic intoxication Alcohol withdrawal Alcoholism Toxic encephalopathy. Discharge Disposition: Home Discharge Instruct/Medications Scheduled PRN Lorazepam (Ativan Tablet), 1 TAB PO BID PRN Discharge Statement: "Patient was advised to return to the ER or call 911 if any headaches, dizziness, shortness of breath, chest pain, abdominal pain, bleeding, fevers, or worsening of medical condition. Patient was counseled about treatment plan, medications, possible side effects, patientverbalized understanding. All questions were answered to the best of my ability. This discharge took greater then 30 minutes in planning, reviewing documentation, counseling the patient, and discussing with other team members." ASSESSMENT ASSESSMENT Assessment Date of Service: Mar 01, 2025 Billing Provider: OLIVIA THOMPSON MD Common Visit Codes: 23567-FSU/OBS DISCH DAY >30min OLIVIA THOMPSON MD Mar 01, 2025 12:40
[2025-03-01] MEDS ORDERED: LORA-655 PO (12:41)
[2025-03-01 13:00] VITALS: BP 131/88; PULSE 88; RESP 19; TEMP 97.5; O2SAT 100
[2025-03-01 13:19] VITALS: BP 131/88; PULSE 88; RESP 19; TEMP 97.8; O2SAT 100
[2025-03-01] MEDS ORDERED: LORA-1121 PO (17:24)
[2025-03-01] MEDS ORDERED: FOLIC ACID 1 MG, MAGNESIUM SULF SDV 50% 8 MEQ, MULTIPLE VITAMIN 10 ML, THIAMINE INJ 100... INJ SCH (18:00)
== END 2025-03-01 14:09 | disposition home or self-care (01) | DRG 816 ==
LOC: EDBD 14:10 → EEVIPCON 14:14 → ER 14:14 → OVERFLOW 18:25 → EEVIPCON 18:25 → OVERFLOW 18:28 → EAST 22:18
PROVIDERS: ADMIT Internal Medicine; ATTEND Internal Medicine
DX: T51.0X1A Toxic effect of ethanol, accidental (unintentional), initial encounter (principal); G92.8 Other toxic encephalopathy; F10.139 Alcohol abuse with withdrawal, unspecified; F10.129 Alcohol abuse with intoxication, unspecified; Y90.8 Blood alcohol level of 240 mg/100 ml or more
CPT/HCPCS: 36415; 80048; 80053; 80307; 80320; 81001; 83735; 85025; 96361; 96374; G0378; J2405

== ENCOUNTER 2025-03-20 09:09 | Emergency (ER) | payer OTHER ==
[~2025-03-20] VITALS: Ht 162.6 cm; Wt 52.3 kg
[~2025-03-20 09:09] MED LIST: LORA-1121 PO
[2025-03-20 09:29] VITALS: TEMP 98.1
[2025-03-20] MEDS: SODIUM CHLORIDE 0.9% 1,000 ML IV ONE ×2 (09:45→09:52)
[2025-03-20] MEDS: THIAMINE 100mg/ml INJ (200mg/2ml VIAL) IV ONE (09:48)
[2025-03-20] MEDS: LORazepam 2MG/ML-1ML VIAL IV ONE (09:49)
--- NOTE | 2025-03-20 10:01 | ED.PDOC ---
History of Present Illness HPI Comments 40-year-old female brought by paramedics because she was shaking anxious thinking that she may be having a seizure. Patient does have a history of alcohol abuse. She stated that she has not drank past two days but woke up this morning shaking. She did have can of beer this morning to avoid withdrawal. She does suffer from depression. Denies any other symptoms. Chief Complaint: Withdrawal Time Seen by MD: 09:25 Reviewed Notes: Nurses Notes, Medications, Allergies Allergies: Coded Allergies: NO KNOWN ALLERGIES (Unverified , 02/26/25) Home Meds Active Scripts Lorazepam (ATIVAN TABLET) 0.5 Mg Tb, 1 TAB PO BID PRN, #30 TAB Prov:OLIVIA THOMPSON MD 03/01/25 Information Source: Patient, Emergency Med Personnel Mode of Arrival: EMS Severity: Moderate Timing: Hours Duration: Since onset Past Medical History PAST MEDICAL HISTORY: Denies Surgical History: Denies all surgeries DISULFURIZER TENDER History: No Pertinent DISULFURIZER TENDER History Family History Family History: Reviewed,noncontributory to illness Social History Smoker: Non-Smoker Alcohol: Heavy Drugs: Denies Drug Use Lives In: Home Constitutional: denies: chills, diaphoresis, fatigue, fever, malaise, sweats, weakness, others EENTM: denies: blurred vision, double vision, ear bleeding, ear discharge, ear drainage, ear pain, ear ringing, eye pain, eye redness, hearing loss, mouth pain, mouth swelling, nasal discharge, nose bleeding, nose congestion, nose pain, photophobia, tearing, throat pain, throat swelling, voice changes, others Respiratory: denies: cough, hemoptysis, orthopnea, SOB at rest, shortness of breath, SOB with excertion, stridor, wheezing, others Cardiovascular: denies: chest pain, dizzy spells, diaphoresis, Dyspnea on exertion, edema, irregular heart beat, left arm pain, lightheadedness, palpitations, PND, syncope, others Gastrointestinal: denies: abdomen distended, abdominal pain, blood streaked bowels, constipated, diarrhea, dysphagia, difficulty swallowing, hematemesis, melena, nausea, poor appetite, poor fluid intake, rectal bleeding, rectal pain, vomiting, others Genitourinary: denies: abnormal vagina bleeding, burning, dyspareunia, dysuria, flank pain, frequency, hematuria, incontinence, pain, , vagina discharge, urgency, others Neurological: reports: tremors; denies: dizziness, fainting, headache, left sided numbness, left sided weakness, numbness, paresthesia, pre-existing deficit, right sided numbness, right sided weakness, seizure, speech problems, tingling, weakness, others Musculoskeletal: denies: back pain, gout, joint pain, joint swelling, muscle pain, muscle stiffness, neck pain, others Integumetry: denies: bruises, change in color, change in hair/nails, dryness, laceration, lesions, lumps, rash, wounds, others Allergic/Immunocompromised: denies: Difficulty Healing, Frequent Infections, Hives, Itching, others Hematologic/Lymphatic: denies: anemia, blood clots, easy bleeding, easy bruising, swollen glands, others Endocrine: denies: excessive hunger, excessive sweating, excessive thirst, excessive urination, flushing, intolerance to cold, intolerance to heat, unexplained weight gain, unexplained weight loss, others Psychiatric: denies: anxiety, bipolar disorder, depression, hopeless, panic disorder, schizophrenia, sleepless, suicidal, others Physical Exam General Appearance: Moderate Distress HEENT: Normal ENT Inspection, Pharynx Normal, TMs Normal Neck: Full Range of Motion, Non-Tender, Normal, Normal Inspection Respiratory: Chest Non-Tender, Lungs Clear, No Accessory Muscle Use, No Respiratory Distress, Normal Breath Sounds Cardiovascular: No Edema, No JVD, No Murmur, No Gallop, Normal Peripheral Pulses, Regular Rate/Rhythm Breast Exam: Deferred Gastrointestinal: No Organomegaly, Non Tender, No Pulsatile Mass, Normal Bowel Sounds, Soft Genitalia: Deferred Pelvic: Deferred Rectal: Deferred Extremities: No calf tenderness, Normal capillary refill, Normal inspection, Normal range of motion, Non-tender, No pedal edema Musculoskeletal : Apperance: Normal Neurologic: Alert, upper shaper II-XII nml as Tested, No Motor Deficits, Normal Affect, Normal Mood, No Sensory Deficits Cerebellar Function: Normal Reflexes: Normal Skin: Dry, Normal Color, Warm Peripheral Pulses: 3+ Radial (R), 3+ Radial (L) Lymphatic: No Adenopathy Was a procedure done? Was a procedure done?: No Differential Dx Considerations may include: Alcohol abuse Alcohol withdrawal X-Ray, Labs, Meds, VS Vital Signs Date Time Temp Pulse Resp B/P (MAP) Pulse Ox O2 Delivery O2 Flow Rate FiO2 03/20/25 09:52 Room Air* 0 21 03/20/25 09:29 98.1 91 16 111/69 (83) 94 98.1 03/20/25 09:29 91 16 94 Room Air 03/20/25 09:22 98.3 89 16 130/88 95 98.3 Lab Test 03/20/25 10:21 Range/Units Plasma/Serum Blood Alcohol 78.5 H <10 mg/dL Current Medications Medications (Trade) Dose Ordered Sig/Clara Route Start Time Stop Time Status Last Admin Lorazepam (Ativan Inj) 1 mg ONCE ONCE IV 03/20/25 09:45 03/20/25 09:46 DC 03/20/25 09:49 Thiamine HCl 100 mg ONCE ONCE IV 03/20/25 09:45 03/20/25 09:46 DC 03/20/25 09:48 Sodium Chloride 1,000 ml @ 1,000 mls/hr Q1H ONCE IV 03/20/25 09:45 03/20/25 10:44 DC 03/20/25 09:45 Sodium Chloride 1,000 ml @ 150 mls/hr Q6H40M ONCE IV 03/20/25 09:45 03/20/25 16:24 03/20/25 09:52 Patient alert. No sign of distress. Alcohol on breath. Vitals stable. Answering questions. Good muscle strength. No leg swelling. No shortness a breath. Mentating well. Was given Ativan. Establish intravenous access. Was given fluids. Was given thiamine. Counseled patient on effects of drinking for 15 minutes. Explained to the patient. Was told to follow up with her primary care physician. Was told to come back if there is any problem. Time of 1ST Reevaluation: 10:00 Reevaluation 1ST: Improved Patient Education/Counseling: Diagnosis, Treatment, Prognosis, Need For Follow Up Family Education/Counseling: No Family Present SEPSIS Sepsis Screen Date sepsis recognized/suspect: Mar 20, 2025 Time Sepsis recognized/suspect: 913 Recent Procedure: No On Antibiotic Therapy: No Respiratory Rate >20: No Heart Rate >90: No Temp<36 C (96.8 F) or >38.3 C: No SBP <90 or MAP <65 mmHG: No New Acute Mental Status Change: No Is the patient on CPAP, BIPAP,: No Physician Orders Sodium Chloride 0.9% (03/20/25 09:45) Vital Signs Date Time Temp Pulse Resp B/P (MAP) Pulse Ox O2 Delivery O2 Flow Rate FiO2 03/20/25 09:52 Room Air* 0 21 03/20/25 09:29 98.1 91 16 111/69 (83) 94 98.1 03/20/25 09:29 91 16 94 Room Air 03/20/25 09:22 98.3 89 16 130/88 95 98.3 Medications Medications Dose Ordered Sig/Clara Route Start Time Stop Time Status Last Admin Dose Admin Lorazepam 1 mg ONCE ONCE IV 03/20/25 09:45 03/20/25 09:46 DC 03/20/25 09:49 Sodium Chloride 1,000 ml @ 150 mls/hr Q6H40M ONCE IV 03/20/25 09:45 03/20/25 16:24 03/20/25 09:52 Sodium Chloride 1,000 ml @ 1,000 mls/hr Q1H ONCE IV 03/20/25 09:45 03/20/25 10:44 DC 03/20/25 09:45 Thiamine HCl 100 mg ONCE ONCE IV 03/20/25 09:45 03/20/25 09:46 DC 03/20/25 09:48 Departure 1 Departure Time of Disposition: 10:00 Impression: Primary Impression: Alcohol abuse Additional Impression: Alcohol withdrawal Qualified Codes: F10.930 - Alcohol use, unspecified with withdrawal, uncomplicated Disposition: 01 HOME / SELF CARE / HOMELESS Condition: Good Discharged With: Self Critical Care Note Critical Care Time?: No Stability Stability form required: No Heart Score Heart Score: Heart Score Response (Comments) Value History N/A 0 EKG N/A 0 Age N/A 0 Risk Factors N/A 0 Troponin N/A 0 Total 0 FELTON MAO MD Mar 20, 2025 10:01
[2025-03-20] MEDS: diphenhdrAMINE HCL 50 MG/1 ML VL IV ONE (11:56)
[2025-03-20 12:32] VITALS: BP 157/84; PULSE 86; RESP 16; O2SAT 97
== END 2025-03-20 12:40 | disposition home or self-care (01) ==
LOC: EDBD 09:09 → ER 09:09
DX: F10.130 Alcohol abuse with withdrawal, uncomplicated (principal); Z79.899 Other long term (current) drug therapy; Y90.9 Presence of alcohol in blood, level not specified
CPT/HCPCS: 36415; 80320; 96361; 96374; 96375; 99284; J1200; J2060; J3411; J7030

== ENCOUNTER 2025-03-20 13:17 | Emergency (ER) | payer OTHER | END 2025-03-20 13:19 | disposition left against medical advice (07) | LOC: ER 13:17 → EDBD 13:17 → ER 13:19 | DX: F19.239 Other psychoactive substance dependence with withdrawal, unspecified (principal); Z53.21 Procedure and treatment not carried out due to patient leaving prior to being seen by health care provider ==